=== PATIENT | male | born 1945 ===

== ENCOUNTER 2019-01-03 10:34 | Outpatient (REF) | payer MEDICARE, SELFPAY ==
[2019-01-03 12:13] LABS: ALT 20 U/L (12-78); AST 14 U/L (15-37); Albumin 2.7 g/dL (3.4-5.0); Alkaline Phosphatase 129 U/L (46-116); Anion Gap 12.1 mmol/L (3-11); BUN 49 mg/dL (7-18); Bilirubin, Total 0.4 mg/dL (0.2-1.0); CO2 22.9 mmol/L (21.0-32.0); CREATININE 2.66 mg/dL (0.70-1.30); Calcium 8.4 mg/dL (8.5-10.1); Chloride 101 mmol/L (98-107); Estimated GFR 23.82 (mL/min/1.73m2); FREE T4 1.14 ng/dL (0.76-1.46); Glucose 179 mg/dL (70-100); Potassium 5.1 mmol/L (3.5-5.1); Sodium 136 mmol/L (136-145); TSH 2.26 uIU/mL (0.358-3.74); Total Protein 6.3 g/dL (6.4-8.2)
== END 2019-01-03 10:54 ==
LOC: LBO 10:34
PROVIDERS: PCP Nurse Practitioner Adult Health; Visit Provider Nurse Practitioner Adult Health
DX: I10 Essential (primary) hypertension (principal); I25.10 Atherosclerotic heart disease of native coronary artery without angina pectoris; E78.5 Hyperlipidemia, unspecified; N18.3 Chronic kidney disease, stage 3 (moderate); E11.9 Type 2 diabetes mellitus without complications
CPT/HCPCS: 36415; 80053; 84439; 84443